=== PATIENT | male | born 1975 | race Two or more races ===

== ENCOUNTER 2018-05-31 04:57 | Emergency (ER) | payer OTHER, MEDICAID ==
[~2018-05-31] VITALS: Ht 160 cm; Wt 79.4 kg
--- NOTE | 2018-05-31 05:05 | NUR ---
MD AT BEDSIDE FOR EVALUATION
--- NOTE | 2018-05-31 05:15 | NUR ---
[employer] AT BEDSIDE FOR LAB DRAW
[2018-05-31 05:22] LABS: BASOPHILS % (AUTO) 0.7 % (0.0-2.0); EOSINOPHILS % (AUTO) 0.8 % (0.0-6.0); HEMATOCRIT 45 % (39-51); HEMOGLOBIN 15.7 g/dL (13.5-17.5); LYMPHOCYTES % (AUTO) 16.4 % (20.0-44.0); MEAN CORPUSCULAR HGB CONC 35 g/dl (31.0-36.0); MEAN CORPUSCULAR VOLUME 91 fL (80-96); MONOCYTES # (AUTO) 0.5 /CMM (0.1-1.30); MONOCYTES % (AUTO) 7.5 % (2.0-12.0); NEUTROPHILS # (AUTO) 4.5 /CMM (1.8-8.9); NEUTROPHILS % (AUTO) 74.6 % (43.0-81.0); PLATELET COUNT (AUTO) 326 /CMM (150-450); RED BLOOD CELL COUNT(AUTO) 4.96 MIL/uL (4.5-6.0)
[2018-05-31 05:30] LABS: CALCIUM, SERUM 9.8 mg/dL (8.5-10.1); CARBON DIOXIDE 25 mmol/L (21-32); CHLORIDE 104 mmol/L (98-107); CREATININE 1.5 mg/dL (0.6-1.3); GLUCOSE 163 mg/dL (74-106); POTASSIUM 4.3 mmol/L (3.5-5.1); SODIUM SERUM 141 mmol/L (136-145); UREA NITROGEN, BLOOD 16 mg/dL (7-18)
[2018-05-31] MEDS ORDERED: VENL25TA4 (05:32)
[2018-05-31 05:34] LABS: ALCOHOL, BLOOD < 3 mg/dL (0-0)
--- NOTE | 2018-05-31 05:43 | NUR ---
[facility] WAS CALLED AND PATIENT REQUESTED FOR HER TO PICK HIM UP. DISCHARGE INSTRUCTIONS GIVEN. NO FURTHER QUESTIONS.
[2018-05-31 05:56] VITALS: BP 145/60
--- NOTE | 2018-05-31 05:59 | NUR ---
Patient discharged to home in stable condition. Written and verbal after care instructions given. Patient verbalizes understanding of instruction.
== END 2018-05-31 06:01 | disposition home or self-care (01) ==
LOC: ER 05:00
DX: F22 Delusional disorders (principal); F20.9 Schizophrenia, unspecified; F31.9 Bipolar disorder, unspecified; F41.9 Anxiety disorder, unspecified
CPT/HCPCS: 36415; 80048-TC; 85025-TC; G0480